=== PATIENT | male | born 1965 | race Caucasian/White ===

== ENCOUNTER 2021-03-04 12:11 | Emergency (ER) | payer OTHER ==
[~2021-03-04] VITALS: Ht 167.6 cm; Wt 64.0 kg
--- NOTE | 2021-03-04 12:12 | NUR ---
Placed in room 01 . [address] on court recording monitor, blood pressure machine and pulse oximeter. To gown for exam. Side rails up.
--- NOTE | 2021-03-04 12:20 | NUR ---
CHECO Adame at bedside examining patient.
--- NOTE | 2021-03-04 12:25 | NUR ---
# 22 gauge angiocath placed to right hand. Use of asceptic technique. Opsite placed over site. Blood return noted. Blood for lab drawn from site. Flushed with 10 cc of normal saline. No evidence of infiltration noted. Patient tolerated well.
[2021-03-04 12:29] VITALS: BP_SYST 212
--- NOTE | 2021-03-04 12:37 | NUR ---
Patient transported to radiology via gurney, accompanied by weight reducing technician.
--- NOTE | 2021-03-04 13:04 | NUR ---
pt returned from CT scan
[2021-03-04 13:13] LABS: BASOPHILS % (AUTO) 0.9 % (0.0-2.0); EOSINOPHILS # (AUTO) 0.3 K/uL (0.0-0.4); EOSINOPHILS % (AUTO) 5.9 % (0.0-4.0); HEMATOCRIT 30.9 % (36-54); HEMOGLOBIN 9.9 g/dL (14.0-18.0); LYMPHOCYTES # (AUTO) 0.9 K/uL (1.0-5.5); MEAN CORPUSCULAR HEMOGLOBIN 30 pg (27-31); MEAN CORPUSCULAR HGB CONC 32 % (32-36); MEAN CORPUSCULAR VOLUME 93 fL (79.0-98.0); MONOCYTES # (AUTO) 0.4 K/uL (0.0-1.0); MONOCYTES % (AUTO) 8.5 % (1.7-9.3); NEUTROPHILS # (AUTO) 3.5 K/uL (1.8-7.7); NEUTROPHILS % (AUTO) 66.7 % (40.0-70.0); PLATELET COUNT (AUTO) 200 K/uL (130-430); RED BLOOD CELL COUNT(AUTO) 3.33 MIL/uL (4.2-6.2); RED CELL DISTRIBUTION WIDTH 15.8 % (9.0-15.0); WHITE BLOOD COUNT (AUTO) 5.2 K/uL (4.8-10.8)
--- NOTE | 2021-03-04 13:16 | NUR ---
report given to Ev PETERSEN
--- NOTE | 2021-03-04 13:27 | NUR ---
Pt resting at this time, no seizures noted at this time, respirations even and unlabored.
[2021-03-04 13:38] LABS: INR 1.1 (0.80-1.20); PROTHROMBIN TIME 10.9 SECS (9.5-12.5)
[2021-03-04 13:39] LABS: ALANINE AMINOTRANSFERASE 62 U/L (12-78); ALBUMIN 3.4 g/dL (3.4-4.8); ANION GAP 5 (5-15); ASPARTATE AMINOTRANSFERASE 27 U/L (10-37); CALCIUM 8.4 mg/dL (8.4-11.0); CHLORIDE 102 mmol/L (98-107); GLUCOSE 284 mg/dL (70-99); PHENYTOIN (DILANTIN) < 0.5 ug/mL (10.0-20.0); POTASSIUM 5.5 mmol/L (3.5-5.1); SODIUM SERUM 139 mmol/L (136-145); TOTAL BILIRUBIN 0.4 mg/dL (0.0-1.0); UREA NITROGEN, BLOOD 78 mg/dL (8-21)
[2021-03-04 13:40] LABS: GFR AFRICAN AMERICAN 7 mL/min (>90)
[2021-03-04] MEDS ORDERED: levETIRAcetam 1,000 MG IV BAG 100 ML IV ONE (13:45)
[2021-03-04] MEDS ORDERED: MORPHINE 4 MG INJ. 4 MG/ML VIAL IVP ONE (14:30)
--- NOTE | 2021-03-04 14:54 | NUR ---
SPOKE WITH HOTEL BREAKFAST ATTENDANT MAGDALENA AT [facility] AND EXPLAINED TO HER THAT DR MAR SET UP DIALYSIS WITH [facility] FOR TODAY, MAGDALENA STATES TO SEND PT BACK TO [facility] VIA AMBULANCE AND THEY WILL FIGURE OUT THE DIALYSIS SITUATION. 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 DR PETER AWARE OF SITUATION
[2021-03-04 15:42] VITALS: BP_SYST 148
--- NOTE | 2021-03-04 15:44 | NUR ---
Patient given written and verbal discharge instructions and verbalizes understanding. ER MD discussed with patient the results and treatment provided. Patient in stable condition. ID arm band removed. IV catheter removed intact and dressing applied, no active bleeding. Patient educated on pain management and to follow up with PMD. Pain Scale 0/10 Opportunity for questions provided and answered. Medication side effect fact sheet provided. Pt will be returning to [facility]. Report given to Divine PETERSEN
== END 2021-03-04 15:42 | disposition home or self-care (01) ==
LOC: SED 12:11
DX: R56.9 Unspecified convulsions (principal); E11.65 Type 2 diabetes mellitus with hyperglycemia; E11.22 Type 2 diabetes mellitus with diabetic chronic kidney disease; I12.0 Hypertensive chronic kidney disease with stage 5 chronic kidney disease or end stage renal disease; N18.6 End stage renal disease; Z99.2 Dependence on renal dialysis; Z88.0 Allergy status to penicillin
CPT/HCPCS: 36415; 70450; 80053; 80185; 84484; 85025; 85610; 85730; 87040; 93005; 96365; 96375; 99285; J1953; J2270